=== PATIENT | female | born 1930 | race Caucasian/White ===

== ENCOUNTER 2017-03-20 00:16 | Inpatient (IN) | payer OTHER ==
[~2017-03-20] VITALS: Ht 162.6 cm; Wt 58.1 kg
[2017-03-20] MEDS ORDERED: B12 PO (00:33)
[2017-03-20] MEDS ORDERED: CALC-20 PO (00:33)
--- NOTE | 2017-03-20 00:55 | NUR ---
ALLERGY information: Patient initially reported allergies to morphine and codeine, patient states that she feels nauseated when she receives these medications which is a known side effect. Allergy information updated.
[2017-03-20] MEDS ORDERED: ONDANSETRON 4 MG/2 ML VIAL IV ONE (01:00)
[2017-03-20] MEDS ORDERED: IV NORMAL SALINE 500 ML BAG IV ONE (01:00)
[2017-03-20] MEDS ORDERED: MORPHINE SULFATE 2 MG/1 ML DISP.SYRIN IV ONE (01:00)
[2017-03-20 01:16] LABS: BASOPHILS % (AUTO) 0.4 % (0.0-2.0); EOSINOPHILS # (AUTO) 0.1 K/uL (0.0-0.7); EOSINOPHILS % (AUTO) 1.1 % (0.0-7.0); HEMATOCRIT 41.4 % (37-47); HEMOGLOBIN 13.7 G/DL (12.0-16.0); LYMPHOCYTES # (AUTO) 1.4 K/UL (0.8-4.8); LYMPHOCYTES % (AUTO) 15.6 % (20.5-51.5); MEAN CORPUSCULAR HEMOGLOBIN 28.9 UUG (27.0-31.0); MEAN CORPUSCULAR HGB CONC 33 g/dL (32.0-37.0); MONOCYTES # (AUTO) 0.7 K/UL (0.1-1.30); MONOCYTES % (AUTO) 8.2 % (0.0-11.0); NEUTROPHILS # (AUTO) 6.8 K/UL (1.8-8.9); NEUTROPHILS % (AUTO) 74.7 % (38.5-71.5); PLATELET COUNT (AUTO) 266 K/UL (150-450); RED BLOOD CELL COUNT(AUTO) 4.76 MIL/UL (4.2-5.4)
[2017-03-20] MEDS ORDERED: MORPHINE SULFATE 2 MG/1 ML DISP.SYRIN ONE ×2 (01:24→04:34)
[2017-03-20] MEDS ORDERED: ONDANSETRON 4 MG/2 ML VIAL ONE (01:24)
[2017-03-20 01:30] LABS: ALANINE AMINOTRANSFERASE 31 U/L (14-59); ALKALINE PHOSPHATASE 61 U/L (50-136); ASPARTATE AMINOTRANSFERASE 33 U/L (15-37); BILIRUBIN,DIRECT 0.1 mg/dL (0.0-0.2); BILIRUBIN,TOTAL 0.4 mg/dL (0.2-1.0); CARBON DIOXIDE 25 mmol/L (21-32); CHLORIDE 98 mmol/L (98-107); CREATININE 0.9 mg/dL (0.6-1.3); GLUCOSE 97 mg/dL (74-106); POTASSIUM 3.8 mmol/L (3.5-5.1); TOTAL PROTEIN, SERUM 7.8 g/dL (6.4-8.2); UREA NITROGEN, BLOOD 14 mg/dL (7-18)
--- NOTE | 2017-03-20 03:40 | NUR ---
DONNELL speaking with [facility], Bertin Hand.
--- NOTE | 2017-03-20 03:44 | NUR ---
DONNELL speaking with Dr. Ha (ORTHO)
[2017-03-20 04:29] LABS: *BILIRUBIN,URIN NEGATIVE (NEGATIVE); *BLOOD, URINE NEGATIVE (NEGATIVE); *CLARITY,URINE CLEAR (CLEAR); *COLOR,URINE YELLOW (YELLOW); *KETONES,URINE NEGATIVE (NEGATIVE); *PROTEIN,URINE NEGATIVE (NEGATIVE); *UROBILINOGEN,URINE 0.2 E.U./dl (NORMAL); LEUKOCYTE ESTERASE ,URINE NEGATIVE (NEGATIVE); NITRITE, URINE NEGATIVE (NEGATIVE); PH,URINE 6.5 (5.0-8.0); UGLUCOSE NEGATIVE (NEGATIVE)
[2017-03-20] MEDS ORDERED: MORPHINE SULFATE 2 MG/1 ML DISP.SYRIN IV STA (04:33)
[2017-03-20 04:35] LABS: BACTERIA,URINE NONE SEEN /HPF (NONE SEEN); RBC,URINE NONE SEEN /HPF (0-3); SQUAMOUS EPITHELIAL CELL,UR FEW /HPF (NONE SEEN); WBC,URINE NONE SEEN /HPF (0-3)
--- NOTE | 2017-03-20 04:36 | NUR ---
Pt. admitted to TELE, under care of Dr. Hand Belongs List completed
[2017-03-20 04:47] VITALS: BP 155/68
--- NOTE | 2017-03-20 05:09 | NUR ---
Admitted this 86 y/o female patient via deepa, awake alert & oriented, still c/o right hip pain Dx. Right pelvis Fracture. Placed on engine monitor as ordered and patient is Sinus Rhythm on the monitor. Vital signs are WNL. Systolic BP elevated due to right hip pain. Discussed about current plan care, patient verbalized understanding. Will continue to monitor.
--- NOTE | 2017-03-20 05:14 | NUR ---
Paged on [facility] aerotriangulation specialist provider for patient's admission orders.
[2017-03-20] MEDS ORDERED: ENOXAPARIN SODIUM 40 MG/0.4 ML DISP.SYRIN SQ SCH (05:30)
[2017-03-20] MEDS ORDERED: MORPHINE SULFATE 2 MG/1 ML DISP.SYRIN IV PRN (05:30)
[2017-03-20] MEDS ORDERED: ONDANSETRON 4 MG/2 ML VIAL IV PRN (05:30)
[2017-03-20] MEDS: IV NS 1000 ML 1,000 ML IV PRN ×2 (05:32→20:27)
[2017-03-20] MEDS: Z GUARD REMEDY PASTE 57 GM TUBE TOP PRN ×2 (05:32→21:18)
[2017-03-20] MEDS ORDERED: ENOXAPARIN SODIUM 40 MG/0.4 ML DISP.SYRIN SQ ONE (05:41)
--- NOTE | 2017-03-20 06:30 | NUR ---
IVF NS at 75 ml/hr started. Lovenox 40 mg subcu given, DVT prophylaxis pump applied to unaffected leg. NPO status, for Ortho consult today. Patient refusing catheter insertion, stated she'd ratther use the bedpan for now since her right hip pain is still tolerable. No acute res. distress.
[2017-03-20 07:07] LABS: MAGNESIUM 1.7 mg/dL (1.8-2.4); PHOSPHOROUS 3.7 mg/dL (2.5-4.9)
[2017-03-20] MEDS ORDERED: PANTOPRAZOLE SODIUM 40 MG VIAL IV SCH (07:19)
[2017-03-20] MEDS: ENOXAPARIN SODIUM 40 MG/0.4 ML DISP.SYRIN SQ SCH ×2 (08:56→10:31)
[2017-03-20] MEDS: FAMOTIDINE. 20 MG/2 ML VIAL IV SCH (10:28)
--- NOTE | 2017-03-20 11:06 | NUR ---
PT REFUSED LOVENOX AT 0900, PT STATED "ILL TAKE IT LATER". ASKED Ariana;DARIEN, "OK" PER PT
--- NOTE | 2017-03-20 11:09 | NUR ---
TORADOL 15MG IV FOR SEVERE PAIN PER DR. ACOSTA Addendum: 03/20/17 at 1111 by MELONY CLINE RN MIGUEL A BENTON
[2017-03-20 11:32] VITALS: BP 146/79
[2017-03-20] MEDS: MAGNESIUM SULFATE/D5W 100 ML IV SCH ×2 (12:40→13:05)
[2017-03-20 15:41] VITALS: BP 146/79
--- NOTE | 2017-03-20 16:25 | NUR ---
CHANGE NPO DIET TO REGULAR PER DR. ACOSTA
--- NOTE | 2017-03-20 19:07 | NUR ---
PT REFUSED NASCIMENTO. PT WAS ABLE TO TOLERATE THE DIET WITH NO S/S OF NAUSEA. PT IS LAYING IN BED COMFORTABLY. NO S/S OF RESPIRATORY DISTRESS NOTED. PT IS ON RA. NO PAIN REPORTED. ALL SAFETY NEEDS ARE MET. SON IS BY THE BEDSIDE.
[2017-03-20 20:00] VITALS: BP 107/40
[2017-03-21] VITALS: BP 151/68
[2017-03-21 04:00] VITALS: BP 146/67
[2017-03-21 06:02] LABS: BASOPHILS % (AUTO) 0.2 % (0.0-2.0); EOSINOPHILS # (AUTO) 0.1 K/uL (0.0-0.7); HEMATOCRIT 39.5 % (37-47); HEMOGLOBIN 12.9 G/DL (12.0-16.0); LYMPHOCYTES # (AUTO) 1.3 K/UL (0.8-4.8); LYMPHOCYTES % (AUTO) 17.6 % (20.5-51.5); MEAN CORPUSCULAR HEMOGLOBIN 28.7 UUG (27.0-31.0); MEAN CORPUSCULAR HGB CONC 33 g/dL (32.0-37.0); MEAN CORPUSCULAR VOLUME 87.8 FL (81.0-99.0); MONOCYTES # (AUTO) 0.7 K/UL (0.1-1.30); MONOCYTES % (AUTO) 9.9 % (0.0-11.0); NEUTROPHILS # (AUTO) 5.3 K/UL (1.8-8.9); NEUTROPHILS % (AUTO) 71.3 % (38.5-71.5); PLATELET COUNT (AUTO) 263 K/UL (150-450); RED BLOOD CELL COUNT(AUTO) 4.49 MIL/UL (4.2-5.4); WHITE BLOOD COUNT (AUTO) 7.4 K/UL (4.0-11.2)
[2017-03-21 06:14] LABS: CARBON DIOXIDE 30 mmol/L (21-32); CHLORIDE 102 mmol/L (98-107); CREATININE 0.9 mg/dL (0.6-1.3); GLUCOSE 99 mg/dL (74-106); POTASSIUM 4.2 mmol/L (3.5-5.1); UREA NITROGEN, BLOOD 8 mg/dL (7-18)
--- NOTE | 2017-03-21 07:00 | NUR ---
No significant change, assisted w/ all needs. Possible transfer to to Rehab unit today. No acute resp distress.
--- NOTE | 2017-03-21 08:00 | NUR ---
resting in bed, oriented x 4, denies of pain at this time, tele SR 80's, INF infusing well, repositioned and readied of breakfast, explained plan of care- verbalized understanding, call light within reach
[2017-03-21] MEDS: FAMOTIDINE. 20 MG/2 ML VIAL IV SCH (08:32)
[2017-03-21] MEDS: ENOXAPARIN SODIUM 40 MG/0.4 ML DISP.SYRIN SQ SCH (08:33)
[2017-03-21] MEDS: IV NS 1000 ML 1,000 ML IV PRN ×2 (09:45→23:06)
[2017-03-21 12:01] VITALS: BP 144/69
--- NOTE | 2017-03-21 14:00 | NUR ---
seen by PT, up in chair
[2017-03-21 16:00] VITALS: BP 146/82
--- NOTE | 2017-03-21 18:26 | NUR ---
resting, no distress noted, downgraded to med/surg, taking fluids well, voiding qs, all needs attended and met, comfort and safety measures provided, call light within reach
--- NOTE | 2017-03-21 19:28 | NUR ---
RECEIVED PATIENT LAYING COMFORTABLY IN BED. A7O X'S 4. IV ON THE R AC PATENT AND INTACT. ABLE TO MAKE NEEDS KNOWN NO ACUTE DISTRESS NOTED. DVT PUMPS IN PLACE. SKIN IS INTACT. SAFETY INITIATED. CALL LIGHT WITHIN REACH. WILL CONTINUE TO MONITOR.
[2017-03-21 20:07] VITALS: BP 144/76
--- NOTE | 2017-03-22 03:00 | NUR ---
patient resting in bed,no c/o of pain,family at bedside,vital signs remains stable, patient received milk of magnesia ,still not has bowel movement ,continue monitor.
[2017-03-22 04:00] VITALS: BP 146/72
[2017-03-22] MEDS: Z GUARD REMEDY PASTE 57 GM TUBE TOP PRN (05:07)
--- NOTE | 2017-03-22 07:30 | NUR ---
No significant change, vital signs are WNL. For possible DC to Rehab today. No acute resp. distress.
[2017-03-22] MEDS: FAMOTIDINE 20 MG TABLET PO SCH (08:47)
[2017-03-22] MEDS: ENOXAPARIN SODIUM 40 MG/0.4 ML DISP.SYRIN SQ SCH (08:48)
[2017-03-22 11:37] VITALS: BP 151/72
[2017-03-22 16:00] VITALS: BP 145/70
[2017-03-22] MEDS: ACETAMINOPHEN 325 MG TABLET PO PRN (16:28)
[2017-03-22] MEDS: KETOROLAC TROMETHAMINE 15 MG INJ IVP PRN (16:29)
[2017-03-22] MEDS: MAGNESIUM HYDROXIDE 30 ML LIQUID UDC PO PRN (18:18)
--- NOTE | 2017-03-22 18:30 | NUR ---
No result from prune juice. Gave MOM for constipation. Pt pain managed with medications and ICE. No fall noted this shift. Call light is within reach.
[2017-03-22 20:00] VITALS: BP 123/70
[2017-03-23] MEDS: ACETAMINOPHEN 325 MG TABLET PO PRN ×2 (04:30→21:28)
[2017-03-23 05:19] VITALS: BP 154/74
[2017-03-23] MEDS: LIDOCAINE 5% PATCH TD SCH ×2 (06:29→09:00)
[2017-03-23] MEDS: MAGNESIUM HYDROXIDE 30 ML LIQUID UDC PO PRN (06:30)
--- NOTE | 2017-03-23 06:34 | NUR ---
PATIENT SLEEP WELL THROUGH THE NIGHT,NO ACUTE CHANGE IN CONDITION.STILL CONSTIPATED, MOM 30 ML PO REPEATED,LIDODERM PATCH AND ICE BAG APPLIED ,ALL NEEDS ATTENDED.
[2017-03-23 06:39] LABS: BASOPHILS % (AUTO) 0.1 % (0.0-2.0); EOSINOPHILS # (AUTO) 0.3 K/uL (0.0-0.7); EOSINOPHILS % (AUTO) 4.2 % (0.0-7.0); HEMATOCRIT 38.6 % (37-47); HEMOGLOBIN 12.5 G/DL (12.0-16.0); LYMPHOCYTES # (AUTO) 1.5 K/UL (0.8-4.8); LYMPHOCYTES % (AUTO) 20.1 % (20.5-51.5); MEAN CORPUSCULAR HEMOGLOBIN 28.6 UUG (27.0-31.0); MEAN CORPUSCULAR HGB CONC 32 g/dL (32.0-37.0); MEAN CORPUSCULAR VOLUME 88.4 FL (81.0-99.0); MONOCYTES % (AUTO) 12.8 % (0.0-11.0); NEUTROPHILS # (AUTO) 4.7 K/UL (1.8-8.9); NEUTROPHILS % (AUTO) 62.8 % (38.5-71.5); PLATELET COUNT (AUTO) 246 K/UL (150-450); RED BLOOD CELL COUNT(AUTO) 4.37 MIL/UL (4.2-5.4); WHITE BLOOD COUNT (AUTO) 7.5 K/UL (4.0-11.2)
[2017-03-23 06:42] LABS: CARBON DIOXIDE 30 mmol/L (21-32); CHLORIDE 100 mmol/L (98-107); CREATININE 0.9 mg/dL (0.6-1.3); GLUCOSE 91 mg/dL (74-106); MAGNESIUM 2.2 mg/dL (1.8-2.4); PHOSPHOROUS 3.2 mg/dL (2.5-4.9)
[2017-03-23 06:51] LABS: UREA NITROGEN, BLOOD 12 mg/dL (7-18)
--- NOTE | 2017-03-23 08:00 | NUR ---
Discussed plan of care with pt re: pain management and fall precaution. Pt agreeable with plan. Pt is in no acute distress. Call light is within reach.
[2017-03-23] MEDS: FAMOTIDINE 20 MG TABLET PO SCH (08:26)
[2017-03-23] MEDS: KETOROLAC TROMETHAMINE 15 MG INJ IVP PRN (08:27)
[2017-03-23] MEDS: ENOXAPARIN SODIUM 40 MG/0.4 ML DISP.SYRIN SQ SCH (08:32)
[2017-03-23 12:00] VITALS: BP 133/74
[2017-03-23 15:39] VITALS: BP 132/66
--- NOTE | 2017-03-23 18:31 | NUR ---
Plan of care effective. Pt is comfortable in bed. Pt was able to tolerate ambulating with physical therapy. No fall noted this shift. Pt refused to have another MOM. Pt states that she will try the pitted prunes instead.
[2017-03-23 20:08] VITALS: BP 142/72
--- NOTE | 2017-03-23 20:26 | NUR ---
Bedside reporting with [place], RN. Received patient awake, on bed, family at bedside. Denies any pain/discomforts at this time. Continue care as planned
[2017-03-24 04:45] VITALS: BP 130/72
--- NOTE | 2017-03-24 06:12 | NUR ---
Slept well. No complaint presented all night. ALL needs attended and met. Safety measures and fall precaution maintained. No significant event reported throughout the night. Continue current plan of care.
--- NOTE | 2017-03-24 06:51 | NUR ---
Bedside reporting with [place], RN
[2017-03-24 06:58] LABS: BASOPHILS % (AUTO) 0.1 % (0.0-2.0); EOSINOPHILS # (AUTO) 0.3 K/uL (0.0-0.7); EOSINOPHILS % (AUTO) 3.5 % (0.0-7.0); HEMATOCRIT 39.6 % (37-47); HEMOGLOBIN 12.9 G/DL (12.0-16.0); LYMPHOCYTES # (AUTO) 1.6 K/UL (0.8-4.8); LYMPHOCYTES % (AUTO) 21.2 % (20.5-51.5); MEAN CORPUSCULAR HEMOGLOBIN 28.7 UUG (27.0-31.0); MEAN CORPUSCULAR HGB CONC 33 g/dL (32.0-37.0); MEAN CORPUSCULAR VOLUME 88.2 FL (81.0-99.0); MONOCYTES # (AUTO) 0.8 K/UL (0.1-1.30); MONOCYTES % (AUTO) 10.2 % (0.0-11.0); NEUTROPHILS # (AUTO) 4.9 K/UL (1.8-8.9); PLATELET COUNT (AUTO) 248 K/UL (150-450); RED BLOOD CELL COUNT(AUTO) 4.49 MIL/UL (4.2-5.4); WHITE BLOOD COUNT (AUTO) 7.6 K/UL (4.0-11.2)
[2017-03-24 07:08] LABS: ALANINE AMINOTRANSFERASE 19 U/L (14-59); ALKALINE PHOSPHATASE 47 U/L (50-136); ASPARTATE AMINOTRANSFERASE 22 U/L (15-37); BILIRUBIN,TOTAL 0.7 mg/dL (0.2-1.0); CARBON DIOXIDE 32 mmol/L (21-32); CHLORIDE 98 mmol/L (98-107); GLUCOSE 98 mg/dL (74-106); MAGNESIUM 2.2 mg/dL (1.8-2.4); PHOSPHOROUS 4.1 mg/dL (2.5-4.9); POTASSIUM 4.1 mmol/L (3.5-5.1); UREA NITROGEN, BLOOD 13 mg/dL (7-18)
[2017-03-24] MEDS: FAMOTIDINE 20 MG TABLET PO SCH (07:59)
[2017-03-24] MEDS: LIDOCAINE 5% PATCH TD SCH (08:04)
[2017-03-24] MEDS: ENOXAPARIN SODIUM 40 MG/0.4 ML DISP.SYRIN SQ SCH (08:04)
--- NOTE | 2017-03-24 10:15 | NUR ---
Pt is in no acute distress. Pt tolerated physical therapy. Pt got dizzy checked orthostatic b/p by physical therapy will notify gumaro WALLACE.
[2017-03-24 10:38] VITALS: BP_SYST 117; BP_SYST 123; BP_SYST 91; BP_DIAS 47; BP_DIAS 70; BP_DIAS 74
--- NOTE | 2017-03-24 10:45 | NUR ---
Jania notified of pt c/o dizziness and orthostatic b/p.
[2017-03-24 11:16] VITALS: BP 114/69
[2017-03-24 15:12] VITALS: BP 114/59
[2017-03-24] MEDS: IV NS 1000 ML 1,000 ML IV PRN (15:38)
[2017-03-24] MEDS: KETOROLAC TROMETHAMINE 15 MG INJ IVP PRN (17:26)
--- NOTE | 2017-03-24 18:07 | NUR ---
Plan of care effective. Pt is in no acute distress. Pt pain managed with toradol. Call light is within reach.
[2017-03-24 20:00] VITALS: BP 119/64
--- NOTE | 2017-03-24 20:00 | NUR ---
RECEIVED PATIENT AWAKE IN BED. A/O X4. VERY PLEASANT WHEN APPROACHED. VS WNL. PATIENT DENIES PAIN OR DISCOMFORT. NO RESP. DISTRESS NOTED. IVF INFUSING WELL. CALL LIGHT IN REACH. ALL NEEDS ATTENDED. WILL CONTINUE TO MONITOR AND ASSESS.
[2017-03-25] MEDS: IV NS 1000 ML 1,000 ML IV PRN ×2 (04:21→19:43)
[2017-03-25 04:53] VITALS: BP 119/66
[2017-03-25] MEDS: LEVOTHYROXINE SODIUM 25 MCG TABLET PO SCH ×2 (06:27→06:52)
[2017-03-25] MEDS: LIDOCAINE 5% PATCH TD SCH (06:27)
--- NOTE | 2017-03-25 06:40 | NUR ---
PATIENT AWAKE IN BED. EASILY AROUSABLE. DENIES PAIN OR DISCOMFORT. NO RESP. DISTRESS NOTED. SLEPT WELL THROUGHOUT THE NIGHT. CALL LIGHT IN REACH. ALL NEEDS ATTENDED. WILL CONTINUE TO MONITOR.
--- NOTE | 2017-03-25 07:37 | NUR ---
RECEIVED PATIENT SLEEPING IN BED. A/O X4. VERY PLEASANT WHEN APPROACHED. VS WNL. PATIENT DENIES PAIN OR DISCOMFORT. NO RESP. DISTRESS NOTED. CALL LIGHT WITH IN REACH. ALL NEEDS ATTENDED. WILL CONTINUE TO MONITOR AND ASSESS.
[2017-03-25] MEDS: FAMOTIDINE 20 MG TABLET PO SCH (08:04)
[2017-03-25] MEDS: ENOXAPARIN SODIUM 40 MG/0.4 ML DISP.SYRIN SQ SCH (08:06)
[2017-03-25 09:02] LABS: BASOPHILS % (AUTO) 0.1 % (0.0-2.0); EOSINOPHILS # (AUTO) 0.3 K/uL (0.0-0.7); EOSINOPHILS % (AUTO) 3.6 % (0.0-7.0); HEMATOCRIT 32.7 % (37-47); LYMPHOCYTES # (AUTO) 1.5 K/UL (0.8-4.8); LYMPHOCYTES % (AUTO) 20.1 % (20.5-51.5); MEAN CORPUSCULAR HEMOGLOBIN 29.9 UUG (27.0-31.0); MEAN CORPUSCULAR HGB CONC 34 g/dL (32.0-37.0); MEAN CORPUSCULAR VOLUME 88.5 FL (81.0-99.0); MONOCYTES # (AUTO) 0.8 K/UL (0.1-1.30); NEUTROPHILS # (AUTO) 4.9 K/UL (1.8-8.9); NEUTROPHILS % (AUTO) 66.2 % (38.5-71.5); PLATELET COUNT (AUTO) 238 K/UL (150-450); WHITE BLOOD COUNT (AUTO) 7.5 K/UL (4.0-11.2)
[2017-03-25 09:37] LABS: ALANINE AMINOTRANSFERASE 26 U/L (14-59); ALKALINE PHOSPHATASE 36 U/L (50-136); ASPARTATE AMINOTRANSFERASE 24 U/L (15-37); BILIRUBIN,TOTAL 0.6 mg/dL (0.2-1.0); CARBON DIOXIDE 27 mmol/L (21-32); CHLORIDE 105 mmol/L (98-107); CREATININE 0.7 mg/dL (0.6-1.3); GLUCOSE 83 mg/dL (74-106); MAGNESIUM 1.7 mg/dL (1.8-2.4); PHOSPHOROUS 3.6 mg/dL (2.5-4.9); POTASSIUM 3.7 mmol/L (3.5-5.1); TOTAL PROTEIN, SERUM 5.7 g/dL (6.4-8.2); UREA NITROGEN, BLOOD 14 mg/dL (7-18)
[2017-03-25] MEDS ORDERED: MAGNESIUM SULFATE/D5W 100 ML IV SCH (10:45)
--- NOTE | 2017-03-25 11:00 | NUR ---
Pt is comfortable in bed. Pt was able to tolerate ambulating with physical therapy.
[2017-03-25 11:27] VITALS: BP 121/60
[2017-03-25 11:33] LABS: IRON, SERUM 49 ug/dL (50-175)
[2017-03-25] MEDS ORDERED: LIDO30AD10 TD (14:40)
[2017-03-25] MEDS ORDERED: MAGN400O6 PO (14:40)
[2017-03-25] MEDS ORDERED: ENOX40DI SQ (14:40)
[2017-03-25] MEDS ORDERED: FAMO20TA8 PO (14:40)
[2017-03-25] MEDS ORDERED: LEVO25TA9 PO (14:40)
[2017-03-25] MEDS ORDERED: ACET325T53 PO (14:40)
[2017-03-25] MEDS ORDERED: TRAM50TA2 PO (14:51)
[2017-03-25] MEDS ORDERED: TRAMADOL HCL 50 MG TABLET PO PRN (15:00)
[2017-03-25 15:20] VITALS: BP_SYST 121; BP_SYST 141; BP_DIAS 60; BP_DIAS 78
--- NOTE | 2017-03-25 17:47 | NUR ---
No significant change, assisted w/ all needs. Possible transfer to to Rehab unit tomorrow No acute resp distress noted.
[2017-03-25 20:00] VITALS: BP 122/71
[2017-03-25] MEDS: ACETAMINOPHEN 325 MG TABLET PO PRN (20:54)
[2017-03-26 04:00] VITALS: BP 126/63
--- NOTE | 2017-03-26 05:52 | NUR ---
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
[2017-03-26] MEDS: LIDOCAINE 5% PATCH TD SCH (06:08)
[2017-03-26] MEDS: LEVOTHYROXINE SODIUM 25 MCG TABLET PO SCH (06:08)
[2017-03-26 06:09] LABS: ALANINE AMINOTRANSFERASE 27 U/L (14-59); ALKALINE PHOSPHATASE 43 U/L (50-136); ASPARTATE AMINOTRANSFERASE 31 U/L (15-37); BILIRUBIN,TOTAL 0.7 mg/dL (0.2-1.0); CARBON DIOXIDE 31 mmol/L (21-32); CHLORIDE 102 mmol/L (98-107); CREATININE 0.8 mg/dL (0.6-1.3); GLUCOSE 91 mg/dL (74-106); PHOSPHOROUS 4.4 mg/dL (2.5-4.9); POTASSIUM 4.2 mmol/L (3.5-5.1); TOTAL PROTEIN, SERUM 6.4 g/dL (6.4-8.2); UREA NITROGEN, BLOOD 15 mg/dL (7-18)
[2017-03-26 06:15] LABS: BASOPHILS % (AUTO) 0.2 % (0.0-2.0); EOSINOPHILS # (AUTO) 0.2 K/uL (0.0-0.7); EOSINOPHILS % (AUTO) 2.8 % (0.0-7.0); HEMATOCRIT 36.9 % (37-47); HEMOGLOBIN 11.9 G/DL (12.0-16.0); LYMPHOCYTES # (AUTO) 1.8 K/UL (0.8-4.8); LYMPHOCYTES % (AUTO) 22.3 % (20.5-51.5); MEAN CORPUSCULAR HEMOGLOBIN 28.6 UUG (27.0-31.0); MEAN CORPUSCULAR HGB CONC 32 g/dL (32.0-37.0); MEAN CORPUSCULAR VOLUME 88.3 FL (81.0-99.0); MONOCYTES # (AUTO) 1.2 K/UL (0.1-1.30); MONOCYTES % (AUTO) 14.7 % (0.0-11.0); NEUTROPHILS # (AUTO) 4.7 K/UL (1.8-8.9); PLATELET COUNT (AUTO) 274 K/UL (150-450); RED BLOOD CELL COUNT(AUTO) 4.18 MIL/UL (4.2-5.4); WHITE BLOOD COUNT (AUTO) 7.9 K/UL (4.0-11.2)
[2017-03-26] MEDS: FAMOTIDINE 20 MG TABLET PO SCH (08:03)
[2017-03-26] MEDS: ENOXAPARIN SODIUM 40 MG/0.4 ML DISP.SYRIN SQ SCH (08:04)
[2017-03-26 11:30] VITALS: BP 112/69
--- NOTE | 2017-03-26 15:48 | NUR ---
D/C ORDERS RECEIVED NOTED AND CARRIED OUT.D/C [place] PER MD ORDERS.RN REPORT GIVEN TO THE PT AND RN MILY OVER LONG TERM.PT LEFT THE FACILITY VIA AMBULANCES IN STABLE CONDITION.PT SON NOTIFIED REGARDING THE PT DISCHARGE.
== END 2017-03-26 15:50 | DRG 551 ==
LOC: ER 00:18 → TELE 03:58 → MED 03-21 16:25
PROVIDERS: ADMIT Nurse Practitioner Acute Care; ATTEND Nurse Practitioner Acute Care
DX: S32.10XA Unspecified fracture of sacrum, initial encounter for closed fracture (principal); S32.491A Other specified fracture of right acetabulum, initial encounter for closed fracture; D68.9 Coagulation defect, unspecified; E44.0 Moderate protein-calorie malnutrition; E87.1 Hypo-osmolality and hyponatremia; G93.89 Other specified disorders of brain; M25.051 Hemarthrosis, right hip; S32.591A Other specified fracture of right pubis, initial encounter for closed fracture; E83.42 Hypomagnesemia; W10.9XXA Fall (on) (from) unspecified stairs and steps, initial encounter; W01.0XXA Fall on same level from slipping, tripping and stumbling without subsequent striking against object, initial encounter; Y93.01 Activity, walking, marching and hiking; Y92.89 Other specified places as the place of occurrence of the external cause; Z87.891 Personal history of nicotine dependence; Z85.118 Personal history of other malignant neoplasm of bronchus and lung; Z90.2 Acquired absence of lung [part of]; I95.1 Orthostatic hypotension; E03.9 Hypothyroidism, unspecified; Z68.22 Body mass index [BMI] 22.0-22.9, adult; E87.6 Hypokalemia; D64.9 Anemia, unspecified
CPT/HCPCS: 36415; 70030-TC; 71010; 72170; 72192; 73502; 83550; 83735; 84100; 84443; 85025; 85730; 93005; 97110; 97116; 97165; 97530; 97535; A4663; J1650; J1885; J2270; J2405; J3475; J3490; J7030; J7040